=== PATIENT | male | born 1985 | race American Indian/Alaskan Native ===

== ENCOUNTER 2017-01-14 05:00 | Emergency (ER) | payer SELFPAY ==
[2017-01-14 05:01] VITALS: BMI 22.8
[2017-01-14 05:09] VITALS: BP 109/76; PULSE 123; RESP 18; TEMP 97.5; O2SAT 99
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
[2017-01-14] MEDS ORDERED: Lidocaine 1% Inj (20ml) ONE (06:10)
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
[2017-01-14] MEDS ORDERED: TDAP Vaccine 0.5 mL Syr IM ONE (07:07)
== END 2017-01-14 07:24 | disposition home or self-care (01) ==
LOC: ED 05:00
DX: S01.21XA Laceration without foreign body of nose, initial encounter (principal); S01.511A Laceration without foreign body of lip, initial encounter; S01.81XA Laceration without foreign body of other part of head, initial encounter; Y04.0XXA Assault by unarmed brawl or fight, initial encounter; Z23 Encounter for immunization

== ENCOUNTER 2017-01-17 15:04 | Emergency (ER) | payer SELFPAY ==
[2017-01-17 15:04] VITALS: BMI 22.8
[2017-01-17 15:23] VITALS: RESP 18; TEMP 98.2
--- NOTE | 2017-01-17 15:51 | ED PDOC ---
Arrival/HPI - General Chief Complaint: Wound Check Time Seen by Provider: 01/17/17 15:11 Historian: Patient - History of Present Illness Narrative History of Present Illness (Text): 01/17/17 15:50 31 year old male, here for the suture check s/p sutured about 3 days ago. Pt. stated that he feels well except the suture wound still has pain, no night sweat , no dizziness, no rash, no numbness or tingling, no night sweat, no rash, no dizziness, no other medical or psychological complaints. Past Medical History - Provider Review Nursing Documentation Reviewed: Yes - Infectious Disease Hx of Infectious Diseases: None - Tetanus Immunization Tetanus Immunization: Unknown - Psychiatric Hx Depression: No Hx Emotional Abuse: No Hx Physical Abuse: No Hx Substance Use: No - Suicidal Assessment Feels Threatened In Home Enviroment: No Family/Social History - Physician Review Nursing Documentation Reviewed: Yes Family/Social History: Unknown Family HX Smoking Status: Never Smoked Hx Alcohol Use: Yes Frequency of alcohol use: Socially Hx Substance Use: No Hx Substance Use Treatment: No Allergies/Home Meds Allergies/Adverse Reactions: Allergies No Known Allergies Allergy (Verified 01/17/17 15:23) Review of Systems - Review of Systems Constitutional: absent: Fatigue, Fevers Eyes: absent: Vision Changes ENT: absent: Hearing Changes Respiratory: absent: SOB, Cough Cardiovascular: absent: Chest Pain, Palpitations Gastrointestinal: absent: Abdominal Pain, Diarrhea, Nausea, Vomiting Skin: Laceration (visible sutures). absent: Rash, Pruritis, Skin Lesions, Abscess, Ulcer, Cellulitis Neurological: absent: Headache, Dizziness Physical Exam Vital Signs Reviewed: Yes Vital Signs Temp Pulse Resp BP Pulse Ox 01/17/17 15:18 98.2 F 90 18 111/79 97 Temperature: Afebrile Blood Pressure: Normal Pulse: Regular Respiratory Rate: Normal Appearance: Positive for: Well-Appearing, Non-Toxic, Comfortable Pain Distress: None Mental Status: Positive for: Alert and Oriented X 3 - Systems Exam Head: Present: Atraumatic, Normocephalic, Other (Facial: visible 16 prolene sutures on the face with no signs of infection, no cellulitis or streaking, no ulcers) Pupils: Present: PERRL Extroacular Muscles: Present: EOMI Conjunctiva: Present: Normal Mouth: Present: Moist Mucous Membranes Neck: Present: Normal Range of Motion Respiratory/Chest: Present: Clear to Auscultation, Good Air Exchange. No: Respiratory Distress, Accessory Muscle Use Cardiovascular: Present: Regular Rate and Rhythm, Normal S1, S2. No: Murmurs Abdomen: Present: Normal Bowel Sounds. No: Tenderness, Distention, Peritoneal Signs, Rebound, Guarding Back: Present: Normal Inspection Upper Extremity: Present: Normal Inspection. No: Cyanosis, Edema Lower Extremity: Present: Normal Inspection. No: Edema Neurological: Present: GCS=15, Speech Normal, Motor Func Grossly Intact, Gait Normal Skin: Present: Warm, Dry, Normal Color. No: Rashes Psychiatric: Present: Alert, Oriented x 3, Normal Insight, Normal Concentration Medical Decision Making ED Course and Treatment: 01/17/17 15:55 -wound healing well and dry, will discharge home. -Discharge home with bacitracin oinment, sutures on the face can be ususally removed on the day 5, return to the ER for any new or worsening signs or symptoms. - PA / PETROGRAPHY TEACHER / Resident Statement MD/ has reviewed & agrees with the documentation as recorded. Disposition/Present on Arrival - Present on Arrival Any Indicators Present on Arrival: No History of DVT/PE: No History of Uncontrolled Diabetes: No Urinary Catheter: No History of Decub. Ulcer: No History Surgical Site Infection Following: None - Disposition Have Diagnosis and Disposition been Completed?: Yes Diagnosis: Visit for wound check Disposition: HOME/ ROUTINE Disposition Time: 15:56 Patient Plan: Discharge Condition: GOOD Additional Instructions: -Discharge home with bacitracin oinment, sutures on the face can be ususally removed on the day 5, return to the ER for any new or worsening signs or symptoms. Prescriptions: Bacitracin Ointment [Bacitracin] 1 appful TOP BID #15 g Referrals: [facility] Melyssa Trejo, [Primary Care Provider] - Follow up with primary Jori Harris MD [Staff Provider] - Follow up with primary Forms: WORK NOTE
[2017-01-17 16:22] VITALS: BP 122/76; PULSE 78; O2SAT 98
== END 2017-01-17 16:23 | disposition home or self-care (01) ==
LOC: ED 15:04
DX: Z51.89 Encounter for other specified aftercare (principal)

== ENCOUNTER 2017-01-20 18:03 | Emergency (ER) | payer SELFPAY ==
[2017-01-20 18:03] VITALS: BMI 22.8
[2017-01-20 18:29] VITALS: BP 114/75; PULSE 88; RESP 16; TEMP 99.5; O2SAT 98
--- NOTE | 2017-01-20 18:43 | ED PDOC ---
Arrival/HPI - General Chief Complaint: Suture/Staple Removal Time Seen by Provider: 01/20/17 18:40 Historian: Patient - History of Present Illness Narrative History of Present Illness (Text): 01/20/17 18:40 31yo male present for suture removal from the face. states sutures was placed her e on 01/17/17. He denies fever, redness, discharge from wound. Past Medical History - Provider Review Nursing Documentation Reviewed: Yes - Infectious Disease Hx of Infectious Diseases: None - Tetanus Immunization Tetanus Immunization: Unknown - Psychiatric Hx Depression: No Hx Emotional Abuse: No Hx Physical Abuse: No Hx Substance Use: No - Suicidal Assessment Feels Threatened In Home Enviroment: No Family/Social History - Physician Review Nursing Documentation Reviewed: Yes Family/Social History: Unknown Family HX Smoking Status: Current Some Days Smoker Hx Alcohol Use: Yes Frequency of alcohol use: Socially Hx Substance Use: No Hx Substance Use Treatment: No Allergies/Home Meds Allergies/Adverse Reactions: Allergies No Known Allergies Allergy (Verified 01/17/17 15:23) Home Medications: Home Meds Medication Instructions Recorded Confirmed No Known Home Med 01/20/17 01/20/17 Review of Systems - Physician Review All systems were reviewed & negative as marked: Yes - Review of Systems Constitutional: Normal Eyes: Normal ENT: Normal Respiratory: Normal Cardiovascular: Normal Gastrointestinal: Normal Genitourinary Male: Normal Musculoskeletal: Normal Skin: Other (Suture removal) Neurological: Normal Endocrine: Normal Hemo/Lymphatic: Normal Psychiatric: Normal Physical Exam Vital Signs Reviewed: Yes Vital Signs Temp Pulse Resp BP Pulse Ox 01/20/17 18:26 99.5 F 88 16 114/75 98 Temperature: Afebrile Blood Pressure: Normal Pulse: Regular Respiratory Rate: Normal Appearance: Positive for: Well-Appearing, Non-Toxic, Comfortable Pain Distress: None Mental Status: Positive for: Alert and Oriented X 3 - Systems Exam Head: Present: Atraumatic, Normocephalic Pupils: Present: PERRL Extroacular Muscles: Present: EOMI Conjunctiva: Present: Normal Mouth: Present: Moist Mucous Membranes Neck: Present: Normal Range of Motion Respiratory/Chest: Present: Clear to Auscultation, Good Air Exchange. No: Respiratory Distress, Accessory Muscle Use Cardiovascular: Present: Regular Rate and Rhythm, Normal S1, S2. No: Murmurs Abdomen: Present: Normal Bowel Sounds. No: Tenderness, Distention, Peritoneal Signs Back: Present: Normal Inspection Upper Extremity: Present: Normal Inspection. No: Cyanosis, Edema Lower Extremity: Present: Normal Inspection. No: Edema Neurological: Present: GCS=15, CN II-XII Intact, Speech Normal Skin: Present: Warm, Dry, Normal Color, Other (13 sutures noted on forehead, nasal bridge and nasolabial area. No sign of infection. Scab noted over the forehead and nasal bridge sutures). No: Rashes Psychiatric: Present: Alert, Oriented x 3, Normal Insight, Normal Concentration Medical Decision Making ED Course and Treatment: 01/20/17 19:24 13 sutures removed from face. Edges appear well approximated. Cleansed and bacitracine applied. PT advised to keep wound clean and dry. Referred to his PMD. Disposition/Present on Arrival - Present on Arrival Any Indicators Present on Arrival: No History of DVT/PE: No History of Uncontrolled Diabetes: No Urinary Catheter: No History of Decub. Ulcer: No History Surgical Site Infection Following: None - Disposition Have Diagnosis and Disposition been Completed?: Yes Diagnosis: Encounter for removal of sutures Disposition: HOME/ ROUTINE Disposition Time: 19:10 Patient Plan: Discharge Patient Problems: Current Active Problems Problem Status Onset Encounter for removal of sutures Acute Condition: STABLE Discharge Instructions (ExitCare): Stitches Removal (ED) Additional Instructions: Keep wound clean and dry Follow up with your doctor Return to ED for any new or worsening symptoms Referrals: [facility] at [facility] [place] [Outside] - Follow up with primary Forms: [employer] (Fijian)
== END 2017-01-20 19:38 | disposition home or self-care (01) ==
LOC: ED 18:03
DX: Z48.02 Encounter for removal of sutures (principal)

== ENCOUNTER 2017-01-24 18:08 | Emergency (ER) | payer SELFPAY ==
[2017-01-24 18:10] VITALS: BMI 22.8
--- NOTE | 2017-01-24 18:16 | ED PDOC ---
Arrival/HPI - General Historian: Patient <Larry Hernandez - Last Filed: 01/24/17 18:52> <Valentín Walters - Last Filed: 01/26/17 11:34> - General Time Seen by Provider: 01/24/17 18:15 - History of Present Illness Narrative History of Present Illness (Text): 01/24/17 18:16 31 y/o male, s/p sutured on the face about 7 days ago, stated that he still has 1 more suture on the face x 1 day. Pt. stated that it has been healing well, noticed there is one additional sutures that didn't take out completely and here for the removal. Pt. has no nausea or vomiting, no fever or chills, no headache or night sweat, no dizziness, no rash, no numbness or tingling, no night sweat, no other medical or psychological complaints. (Larry Hernandez) Past Medical History - Provider Review Nursing Documentation Reviewed: Yes - Infectious Disease Hx of Infectious Diseases: None - Tetanus Immunization Tetanus Immunization: Unknown - Psychiatric Hx Depression: No Hx Emotional Abuse: No Hx Physical Abuse: No Hx Substance Use: No - Suicidal Assessment Feels Threatened In Home Enviroment: No <Larry Hernandez - Last Filed: 01/24/17 18:52> Family/Social History - Physician Review Nursing Documentation Reviewed: Yes Family/Social History: Unknown Family HX Smoking Status: Current Some Days Smoker Hx Alcohol Use: Yes Hx Substance Use: No Hx Substance Use Treatment: No <Larry Hernandez - Last Filed: 01/24/17 18:52> Allergies/Home Meds <Larry Hernandez - Last Filed: 01/24/17 18:52> <Valentín Walters - Last Filed: 01/26/17 11:34> Allergies/Adverse Reactions: Allergies No Known Allergies Allergy (Verified 01/24/17 18:36) Home Medications: Home Meds Medication Instructions Recorded Confirmed No Known Home Med 01/20/17 01/24/17 Review of Systems - Review of Systems Constitutional: absent: Fatigue, Fevers Eyes: absent: Vision Changes ENT: absent: Hearing Changes Respiratory: absent: SOB, Cough Cardiovascular: absent: Chest Pain Gastrointestinal: absent: Abdominal Pain, Nausea, Vomiting Skin: Laceration (+sutured wound). absent: Rash, Pruritis, Skin Lesions Neurological: absent: Headache, Dizziness <Larry Hernandez - Last Filed: 01/24/17 18:52> Physical Exam Vital Signs Reviewed: Yes Temperature: Afebrile Blood Pressure: Normal Pulse: Regular Respiratory Rate: Normal Appearance: Positive for: Well-Appearing, Non-Toxic, Comfortable Pain Distress: None Mental Status: Positive for: Alert and Oriented X 3 - Systems Exam Head: Present: Atraumatic, Normocephalic Pupils: Present: PERRL Extroacular Muscles: Present: EOMI Conjunctiva: Present: Normal Mouth: Present: Moist Mucous Membranes Neck: Present: Normal Range of Motion Respiratory/Chest: Present: Clear to Auscultation, Good Air Exchange. No: Respiratory Distress, Accessory Muscle Use Cardiovascular: Present: Regular Rate and Rhythm, Normal S1, S2. No: Murmurs Abdomen: Present: Normal Bowel Sounds. No: Tenderness, Distention, Peritoneal Signs Upper Extremity: Present: Normal Inspection. No: Cyanosis, Edema Lower Extremity: Present: Normal Inspection. No: Edema Neurological: Present: GCS=15, Speech Normal, Motor Func Grossly Intact, Gait Normal, Memory Normal Skin: Present: Warm, Dry, Rashes (visible total of 3 prolene sutures noted on the upper lip/forehead and nose region which I removed completely, no cellulitis or streaking, no ulcers. ), Normal Color Psychiatric: Present: Alert, Oriented x 3, Normal Insight, Normal Concentration <Larry Hernandez - Last Filed: 01/24/17 18:52> Vital Signs Temp Pulse Resp BP Pulse Ox 01/24/17 18:30 98.5 F 98 H 20 114/71 99 Medical Decision Making <Larry Hernandez - Last Filed: 01/24/17 18:52> <Valentín Walters - Last Filed: 01/26/17 11:34> ED Course and Treatment: 01/24/17 18:56 -3 suture removed completely by me, re-examined and no visible remaining sutures , examined with the patient and the girlfriend together. -Discharge home with education on follow up with your own pmd within 2 days, return to the ER for any new or worsening signs or symptoms. (Larry Hernandez) - PA / LYE PEEL OPERATOR / Resident Statement MD/DO has reviewed & agrees with the documentation as recorded. <Larry Hernandez - Last Filed: 01/24/17 18:52> - PA / LYE PEEL OPERATOR / Resident Statement MD/DO has reviewed & agrees with the documentation as recorded. <Valentín Walters - Last Filed: 01/26/17 11:34> Disposition/Present on Arrival - Present on Arrival Any Indicators Present on Arrival: No History of DVT/PE: No History of Uncontrolled Diabetes: No Urinary Catheter: No History of Decub. Ulcer: No History Surgical Site Infection Following: None - Disposition Have Diagnosis and Disposition been Completed?: Yes Disposition Time: 18:58 Patient Plan: Discharge <Larry Hernandez - Last Filed: 01/24/17 18:52> <Valentín Walters - Last Filed: 01/26/17 11:34> - Disposition Diagnosis: Visit for suture removal Disposition: HOME/ ROUTINE Condition: IMPROVED Additional Instructions: -Discharge home with education on follow up with your own pmd within 2 days, return to the ER for any new or worsening signs or symptoms. Referrals: [facility] [place] - Follow up with primary Forms: WORK NOTE
[2017-01-24 18:37] VITALS: BP 114/71; PULSE 98; RESP 20; TEMP 98.5; O2SAT 99
== END 2017-01-24 19:14 | disposition home or self-care (01) ==
LOC: ED 18:08
DX: Z48.02 Encounter for removal of sutures (principal)